=== PATIENT | female | born 1940 | race Caucasian/White ===

== ENCOUNTER 2020-12-22 11:03 | Emergency (ER) | payer MEDICARE ==
[~2020-12-22 11:03] MED LIST: ADVAIR 250-501 EACH IH; ASPIRIN EC81 MG PO; AUGMENTIN 875-1 EACH PO; FISH OIL 1,2001 EAC2 PO; IBUPROFEN800 MG PO; LEVAQUIN750 MG PO; LISINOPRIL5 MG PO; MYNEPHROCAPS SOF1 MG PO; NATURAL LUTEIN20 MG PO; PROVENTIL HFA 61 INH INH; SPIRIVA18 MCG INH; VENTOLIN/PROVE0.5 ML INH; VITAMIN C500 M1 PO
[2020-12-22 12:00] LABS: HEMOGLOBIN 13.7 gm/dl (12.3-15.3); RED BLOOD COUNT 4.52 M/UL (4.00-5.10); WHITE BLOOD COUNT 9.3 K/UL (4.5-11.0)
[2020-12-22 12:33] LABS: BUN/CREATININE RATIO 24 (0-10)
== END 2020-12-22 15:45 | disposition home or self-care (01) ==
LOC: ER1 11:03
PROVIDERS: Physician Assistant
DX: U07.1 COVID-19 (principal); I25.2 Old myocardial infarction; I10 Essential (primary) hypertension; J44.9 Chronic obstructive pulmonary disease, unspecified; Z90.710 Acquired absence of both cervix and uterus; Z88.1 Allergy status to other antibiotic agents
CPT/HCPCS: 71045; 80053; 82550; 82553; 83874; 84484; 85025; 93005; 99285